=== PATIENT | male | born 1985 | race Caucasian/White ===

== ENCOUNTER 2023-01-10 08:51 | Outpatient (CLI) | payer OTHER, SELFPAY | END 2023-01-10 08:52 | disposition home or self-care (01) | LOC: NFLDREF 01-12 07:01 | PROVIDERS: PCP Family Medicine; Referring Provider Family Medicine; Visit Provider Emergency Medicine | DX: E78.5 Hyperlipidemia, unspecified (principal); Z13.1 Encounter for screening for diabetes mellitus | CPT/HCPCS: 80061; 82947 ==